=== PATIENT | female | born 1970 | race Caucasian/White ===

== ENCOUNTER 2018-01-23 06:39 | Day surgery (SDC) | payer BC ==
[~2018-01-23] VITALS: Ht 170.2 cm; Wt 104.5 kg
[~2018-01-23 06:39] MED LIST: DARV PO; PIRB14I INH; ROSI1TAB24 PO; [UNRECOGNIZED DRUG - CODE] PO
[2018-01-23] MEDS ORDERED: MISCELLANEOUS NURSING INFORMATION PRN (07:15)
[2018-01-23] MEDS ORDERED: SODIUM CHLOR 0.9% 1000 ML INJ 1,000 ML IV SCH (07:15)
[2018-01-23] MEDS ORDERED: SODIUM CHLORIDE 0.9% FLUSH 10 ML FLUSH IV FLUSH PRN ×2 (07:15)
[2018-01-23 07:30] VITALS: BP 156/82; PULSE 74; RESP 18; TEMP 98.3; O2SAT 98
[2018-01-23] MEDS ORDERED: SIMV10TA PO (07:32)
[2018-01-23] MEDS ORDERED: MULT-65 PO (07:32)
[2018-01-23] MEDS ORDERED: GLYB6TAB PO (07:32)
[2018-01-23 08:09] LABS: BICARBONATE 27.6 MEQ/L (21.0-32.0); CALCIUM 9.6 MG/DL (8.5-10.1); CREATININE 1.09 MG/DL (0.50-1.00)
[2018-01-23 09:00] VITALS: BP 131/74; PULSE 68; RESP 18; TEMP 98.2; O2SAT 97
--- NOTE | 2018-01-23 09:06 | PD.RAD ---
Post Procedure Progress Note Pre Procedure Diagnosis: (1) Chronic headaches Post Procedure Diagnosis: (1) Chronic headaches Procedure Date: Jan 23, 2018 Supervising Radiologist: Jareth Deal JR Proceduralist/Assist: RT Real(R), RT Caterina(R)(CV) Anesthesia: Local Plan of Activity Patient to Unit: ROPU Patient Condition: Good See PACS Report for procedural detail/treatment Spinal Procedure Lumbar Puncture L3-L4 Fluid Removal (CCs): 6 Fluid Description: Clear Puncture Time: 08:35 Findings: Clear CSF obtained. Output of CSF very slow. Only 6mL obtained. Jr. Say,Jareth Mondragon MD Jan 23, 2018 09:05
--- NOTE | 2018-01-23 09:29 | RADRPT ---
EXAM DATE/TIME: 01/23/2018 08:19 [place] COMPARISON: No previous studies available for comparison. INDICATIONS : Patient presents with headaches in need of lumbar puncture to rule out multiple sclerosis. MEDICAL HISTORY : Migraines DM Asthma High cholesterol SURGICAL HISTORY : Eye sx Elbow sx Hysterectomy ENCOUNTER: Initial ACUITY: > 1 year PAIN SCORE: 0/10 LOCATION: N/A LUMBAR PUNCTURE TIME: 08:35 hours FLUORO TIME: 1.3 minutes IMAGE SERIES: 1 ACCESS LEVEL: L3-4 FLUID: 6 cc of clear CSF was collected and sent to the laboratory for analysis. PROCEDURE : 1. Fluoroscopic guided lumbar puncture. The risks, benefits and alternatives to the procedure were explained and verbal and written consent w as obtained. The site was prepped in sterile fashion. Full sterile technique was used, including ca p, mask, sterile gloves and gown and a large sterile sheet. Hand hygiene and 2% chlorhexidine and/or betadine/alcohol prep was utilized per protocol for cutaneous antisepsis. The skin and subcutaneous tissues were infiltrated with local anesthetic solution. With fluoroscopic guidance the lumbar thecal sac was punctured at the level above. The fluid describ ed above was removed without difficulty. The fluid was very slow to drain. The patient tolerated the procedure well and there were no complications. CONCLUSION: Uncomplicated fluoroscopically guided lumbar puncture. Jareth Deal Jr., MD on January 23, 2018 at 9:18 Board Certified Radiologist. This report was verified electronically.
[2018-01-23 10:12] LABS: TOTAL PROTEIN,CSF 48.1 MG/DL (15.0-45.0)
[2018-01-23 10:30] VITALS: BP 142/85; PULSE 80; RESP 18; O2SAT 97
[2018-01-23 10:59] LABS: RBC TUBE #4 387 /MM3; SUPERNATE COLOR TUBE #1 CLEAR (CLEAR); VOLUME TUBE # 1 1.8 ML; WBC TUBE #4 24 /MM3 (0-10)
[2018-01-23 11:00] LABS: CSF LYMPHOCYTES 84 %; CSF MONOCYTES 14 %; CSF NEUTROPHILS 2 %
[2018-01-24 17:32] LABS: ALBUMIN CSF 26.5 mg/dL (<=27.0); ALBUMIN SERUM 4280 mg/dL (3200 - 4800); IGG CSF 2.8 mg/dL (<=8.1); IGG SERUM 925 mg/dL (767 - 1590); IGG/ALBUMIN CSF 0.11 (<=0.21); IGG/ALBUMIN SERUM 0.22 (<=0.40); OLIGOCLONAL BANDING CSF 0 bands; OLIGOCLONAL BANDING INTERPRET 0 bands (<4); OLIGOCLONAL BANDING SERUM 0 bands
[2018-01-26 09:25] LABS: CSF CRYPTOCOCCUS AG CONF ND (NOT DETECTD)
[2018-01-27 19:53] LABS: VDRL CSF NON-REACTIVE (NON-REACTVE)
[2018-01-28 19:53] LABS: CSF CRYPTOCOCCUS ANTIGEN NOT DETECTED (NEGATIVE)
== END 2018-01-23 10:50 | disposition home or self-care (01) ==
LOC: HROP 06:39 → HRIP 06:43 → HROP 10:50
PROVIDERS: ATTEND Psychiatry & Neurology Neurology
DX: R51 Headache (principal); E11.9 Type 2 diabetes mellitus without complications; J45.909 Unspecified asthma, uncomplicated; E78.00 Pure hypercholesterolemia, unspecified
CPT/HCPCS: 62270; 77003; 80048; 82040; 82042; 82164; 82784; 82945; 83873; 83916; 84157; 86403; 86592; 87015; 87070; 87102; 87116; 87205; 87206; 87476; 88108; 89051; J7030